=== PATIENT | male | born 1950 | race African-American/Black ===

== ENCOUNTER 2022-06-03 06:42 | Inpatient (IN) ==
[2022-06-03] MEDS ORDERED: SODIUM CHLORIDE 0.9% 500 ML IV STA (07:16)
[2022-06-03] MEDS ORDERED: cefTRIAXone 1,000 MG in SODIUM CHLORIDE 0.9% 100 ML IV STA (07:16)
[2022-06-03 07:48] LABS: Basophils % 0.3 % (0.0-0.8); Eosinophils # 0.1 10*3/uL (0.0-0.87); Eosinophils % 0.6 % (0.00-10.9); Hematocrit 46.2 VOL% (42.0-52.0); Hemoglobin 15.2 GM/DL (14.0-18.0); Immature Granulocytes % 0.3 %; Immature Granulocytes Absolute 0.03 #; Lymphocytes # 0.7 10*3/uL (1.4-4.0); Lymphocytes % 5.9 % (21.2-54.2); Mean Corpuscular HGB Conc 32.9 GM/DL (32-36); Mean Corpuscular Volume 97.7 FL (87-102); Mean Platelet Volume 8.8 FL (9.6-12.0); Monocytes # 0.9 10*3/uL (0.11-0.8); Monocytes % 7.6 % (1.7-12.7); Neutrophils % 85.3 % (38.7-73.9); Platelet Count 221 T/CUMM (130-400); Red Blood Count 4.73 MC/CUMM (3.8-5.5); Red Cell Distribution Width 12.1 % (9.3-17.3); White Blood Count 11.8 T/CUMM (4-12)
[2022-06-03 07:53] LABS: Amorphous Crystals,Urine Occasional /HPF (Few); Bacteria,Urine Many /HPF (Few); Mucus,Urine Occasional /LPF (Occasional); RBC,Urine 15-20 /HPF (0-4); Squamous Epithelial Cell,Urine Occasional /HPF (0-10); Urine Appearance Slightly Cloudy (Clear); Urine Color Dark yellow (Yellow)
[2022-06-03 07:54] LABS: Bilirubin,Urine Negative (Negative); Blood, Urine Trace mg/dL (Negative); Glucose,Urine (UA) Negative (Negative); Ketones,Urine Trace mg/dL (Negative); Nitrite,Urine Positive (Negative); Protein,Urine Trace mg/dL (Negative); Urine Urobilinogen 0.2 eU/dL (<2.0); Urine pH 5.5 (4.5-8.0)
[2022-06-03 08:13] LABS: Alanine Aminotransferase < 6 U/L (16-61); Albumin 3.6 G/DL (3.4-5.0); Alkaline Phosphatase 61 U/L (45-117); Aspartate Amino Transferase 16 U/L (0-37); Blood Urea Nitrogen 24 MG/DL (7-18); Calcium 9.1 MG/DL (8.5-10.1); Carbon Dioxide 28 MMOL/L (21-32); Chloride 106 MMOL/L (98-107); Glucose 105 MG/DL (74-106); Osmolality,Calculated 276.8 MOS/KG (273-304); Potassium 4.5 MMOL/L (3.5-5.1); Sodium 137 MMOL/L (136-145)
[2022-06-03] MEDS ORDERED: ACETAMINOPHEN 325 MG TABLET PO PRN (09:06)
[2022-06-03] MEDS ORDERED: ONDANSETRON 4 MG/2 ML VIAL IV PRN (09:06)
[2022-06-03] MEDS ORDERED: ALBUTEROL 2.5 MG/3 ML NEB RESP TX PRN (09:06)
[2022-06-03] MEDS ORDERED: GLUCAGON 1 MG VIAL IM PRN (09:06)
[2022-06-03] MEDS ORDERED: SODIUM CHLORIDE 0.9% 2,000 ML IV ONE (09:13)
[2022-06-03] MEDS ORDERED: DEXTROSE 10% 250 ML BAG IV PRN (09:14)
[2022-06-03] MEDS ORDERED: LACTULOSE 20 GM/30 ML UDCUP PO ONE (12:00)
[2022-06-03] MEDS: MEROPENEM 500 MG in SODIUM CHLORIDE 0.9% 100 ML IV SCH ×2 (13:01→21:09)
[2022-06-03] MEDS: ENOXAPARIN 40 MG/0.4 ML SYRINGE SUBCUT SCH (13:02)
[2022-06-03] MEDS: SODIUM CHLORIDE 0.9% 1,000 ML IV SCH ×2 (13:58→19:33)
[2022-06-03] MEDS: ENTACAPONE 200 MG TABLET PO SCH ×2 (18:08→21:08)
[2022-06-03] MEDS: CARBIDOPA/LEVODOPA 25-100 MG TABLET PO SCH ×2 (18:08→21:08)
[2022-06-03] MEDS: DOCUSATE SODIUM 100 MG CAPSULE PO SCH (21:08)
[2022-06-04] MEDS: MEROPENEM 500 MG in SODIUM CHLORIDE 0.9% 100 ML IV SCH ×4 (02:00→20:43)
[2022-06-04] MEDS: SODIUM CHLORIDE 0.9% 1,000 ML IV SCH ×2 (03:55→18:27)
[2022-06-04 06:12] LABS: Basophils % 0.3 % (0.0-0.8); Eosinophils # 0.1 10*3/uL (0.0-0.87); Hematocrit 37.3 VOL% (42.0-52.0); Hemoglobin 12.1 GM/DL (14.0-18.0); Immature Granulocytes % 0.4 %; Immature Granulocytes Absolute 0.06 #; Lymphocytes # 1.4 10*3/uL (1.4-4.0); Mean Corpuscular HGB Conc 32.4 GM/DL (32-36); Mean Corpuscular Volume 98.9 FL (87-102); Monocytes # 1.6 10*3/uL (0.11-0.8); Monocytes % 11.2 % (1.7-12.7); Neutrophils % 77.1 % (38.7-73.9); Platelet Count 170 T/CUMM (130-400); Red Blood Count 3.77 MC/CUMM (3.8-5.5); Red Cell Distribution Width 12.4 % (9.3-17.3); White Blood Count 14.3 T/CUMM (4-12)
[2022-06-04 06:29] LABS: Calcium 7.5 MG/DL (8.5-10.1); Potassium 3.9 MMOL/L (3.5-5.1); Risk Ratio 1.87; Thyroid Stimulating Hormone 1.08 uIU/ml (0.358-3.74); VLDL Cholesterol 8.4 MG/DL
[2022-06-04] MEDS: DOCUSATE SODIUM 100 MG CAPSULE PO SCH ×2 (08:34→20:42)
[2022-06-04] MEDS: PANTOPRAZOLE 40 MG TABLET PO SCH (08:34)
[2022-06-04] MEDS: ENTACAPONE 200 MG TABLET PO SCH ×4 (08:34→20:42)
[2022-06-04] MEDS: CARBIDOPA/LEVODOPA 25-100 MG TABLET PO SCH ×4 (08:34→20:42)
[2022-06-04] MEDS: ENOXAPARIN 40 MG/0.4 ML SYRINGE SUBCUT SCH (10:38)
[2022-06-05] MEDS: MEROPENEM 500 MG in SODIUM CHLORIDE 0.9% 100 ML IV SCH ×4 (02:29→20:05)
[2022-06-05 05:05] LABS: Basophils % 0.3 % (0.0-0.8); Eosinophils # 0.2 10*3/uL (0.0-0.87); Eosinophils % 2.2 % (0.00-10.9); Hemoglobin 12.4 GM/DL (14.0-18.0); Immature Granulocytes % 0.4 %; Immature Granulocytes Absolute 0.03 #; Lymphocytes # 0.6 10*3/uL (1.4-4.0); Lymphocytes % 9.3 % (21.2-54.2); Mean Corpuscular HGB Conc 32.6 GM/DL (32-36); Mean Platelet Volume 9.1 FL (9.6-12.0); Monocytes # 0.6 10*3/uL (0.11-0.8); Monocytes % 8.4 % (1.7-12.7); Neutrophils % 79.4 % (38.7-73.9); Platelet Count 172 T/CUMM (130-400); Red Blood Count 3.84 MC/CUMM (3.8-5.5); Red Cell Distribution Width 12.4 % (9.3-17.3); White Blood Count 6.8 T/CUMM (4-12)
[2022-06-05 05:32] LABS: Calcium 7.7 MG/DL (8.5-10.1); Osmolality,Calculated 282.3 MOS/KG (273-304)
[2022-06-05] MEDS: ENOXAPARIN 40 MG/0.4 ML SYRINGE SUBCUT SCH (08:58)
[2022-06-05] MEDS: DOCUSATE SODIUM 100 MG CAPSULE PO SCH ×2 (09:05→20:05)
[2022-06-05] MEDS: CARBIDOPA/LEVODOPA 25-100 MG TABLET PO SCH ×4 (09:05→20:05)
[2022-06-05] MEDS: ENTACAPONE 200 MG TABLET PO SCH ×4 (09:05→20:05)
[2022-06-05] MEDS: PANTOPRAZOLE 40 MG TABLET PO SCH (09:05)
[2022-06-05 12:47] LABS: Mucus,Urine Occasional /LPF (Occasional); Squamous Epithelial Cell,Urine Occasional /HPF (0-10); Urine Appearance Clear (Clear); Urine Color Dark yellow (Yellow)
[2022-06-05 12:48] LABS: Bilirubin,Urine Negative (Negative); Blood, Urine Negative (Negative); Glucose,Urine (UA) Negative (Negative); Ketones,Urine Trace mg/dL (Negative); Nitrite,Urine Negative (Negative); Protein,Urine Negative (Negative); Urine Specific Gravity 1.025 (1.001-1.035); Urine Urobilinogen 0.2 eU/dL (<2.0); Urine pH 5.5 (4.5-8.0)
[2022-06-05] MEDS: SODIUM CHLORIDE 0.9% 1,000 ML IV SCH (16:09)
[2022-06-06] MEDS: MEROPENEM 500 MG in SODIUM CHLORIDE 0.9% 100 ML IV SCH ×2 (02:40→09:58)
[2022-06-06 05:52] LABS: Basophils % 0.5 % (0.0-0.8); Eosinophils # 0.1 10*3/uL (0.0-0.87); Eosinophils % 2.9 % (0.00-10.9); Hemoglobin 12.7 GM/DL (14.0-18.0); Immature Granulocytes % 0.5 %; Immature Granulocytes Absolute 0.02 #; Lymphocytes # 0.6 10*3/uL (1.4-4.0); Lymphocytes % 15.9 % (21.2-54.2); Mean Corpuscular HGB Conc 32.6 GM/DL (32-36); Mean Corpuscular Volume 97.7 FL (87-102); Mean Platelet Volume 9.1 FL (9.6-12.0); Monocytes # 0.6 10*3/uL (0.11-0.8); Monocytes % 16.9 % (1.7-12.7); Neutrophils % 63.3 % (38.7-73.9); Platelet Count 176 T/CUMM (130-400); Red Blood Count 3.99 MC/CUMM (3.8-5.5); Red Cell Distribution Width 12.2 % (9.3-17.3); White Blood Count 3.8 T/CUMM (4-12)
[2022-06-06 06:07] LABS: Calcium 7.6 MG/DL (8.5-10.1); Osmolality,Calculated 283.1 MOS/KG (273-304); Potassium 4.1 MMOL/L (3.5-5.1)
[2022-06-06 06:21] LABS: Eosinophils 5 % (0-10); Lymphocytes 11 % (20-55); Total Cells Counted 100
[2022-06-06 06:22] LABS: Hypochromia Slight; Macrocytosis Slight
[2022-06-06 06:23] LABS: Platelet Estimate Adequate
[2022-06-06] MEDS: ENTACAPONE 200 MG TABLET PO SCH ×2 (09:51→13:10)
[2022-06-06] MEDS: CARBIDOPA/LEVODOPA 25-100 MG TABLET PO SCH ×2 (09:53→13:10)
[2022-06-06] MEDS: PANTOPRAZOLE 40 MG TABLET PO SCH (09:53)
[2022-06-06] MEDS: DOCUSATE SODIUM 100 MG CAPSULE PO SCH (09:53)
[2022-06-06] MEDS: ENOXAPARIN 40 MG/0.4 ML SYRINGE SUBCUT SCH (09:55)
[2022-06-06 11:43] VITALS: BP 141/73
[2022-06-06] MEDS: SODIUM CHLORIDE 0.9% 1,000 ML IV SCH (14:52)
== END 2022-06-06 14:31 | disposition home health service (06) | DRG 690 ==
LOC: N.ED 06:42 → SUATTDRO 09:02 → N.EDINP 09:02 → N.5E 09:41
PROVIDERS: ADMIT Internal Medicine; ATTEND Internal Medicine